=== PATIENT | female | born 1995 | race American Indian/Alaskan Native ===

== ENCOUNTER → 2021-09-09 | Emergency (ER) | payer OTHER ==
[~2021-09-09] MED LIST: METOCLOPRAMIDE 10 MG TAB PO ONE; SERTRALINE 25 MG TAB ONE
[2021-09-09 19:54] VITALS: BP 140/81
--- NOTE | 2021-09-09 20:03 | Event Note ---
ED Screening Note ED Screening Note: Patient is a 26-year-old female presents emergency room complaints of nausea and vomiting and increased saliva over the last 5 days she states that she has been having some lower abdominal cramping Patient states that she is concerned that she may be and states her last menstrual cycle was 08/13/2021 She states that she is also had some mild diarrhea She denies any vaginal bleeding or dysuria This initial assessment/diagnostic orders/clinical plan/treatment(s) is/are subject to change based on patients health status, clinical progression and re- assessment by fellow clinical providers in the ED. Further treatment and workup at subsequent clinical providers discretion. Patient/guardian urged not to elope from the ED as their condition may be serious if not clinically assessed and managed. Initial orders include: Labs, urine, meds
[2021-09-09 20:55] LABS: Basophils # (Auto) 0.1 K/mm3 (0.0-0.1); Basophils % (Auto) 1.2 % (0.0-1.8); Eosinophils # (Auto) 0.3 K/mm3 (0.0-0.4); Eosinophils % (Auto) 4.2 % (0.0-4.3); Lymphocytes # (Auto) 2.4 K/mm3 (1.2-5.4); Lymphocytes % (Auto) 35.7 % (13.4-35.0); Mean Corpuscular HGB Conc 30 % (30-34); Mean Corpuscular Volume 77 fl (79-97); Monocytes # (Auto) 0.9 K/mm3 (0.0-0.8); Monocytes % (Auto) 13.4 % (0.0-7.3); Platelet Count 363 K/mm3 (140-440); Red Blood Count 4.77 M/mm3 (3.65-5.03); Red Cell Distribution Width 18.1 % (13.2-15.2)
[2021-09-09 20:57] LABS: Hematocrit 36.7 % (30.3-42.9); Hemoglobin 10.9 gm/dl (10.1-14.3)
[2021-09-09 20:57] LABS: Bacteria,Urine 1+ /HPF (Negative); Bilirubin,Urine NEG (Negative); Blood,Urine NEG (Negative); Color,Urine Yellow (Yellow); Mucus,Urine 1+ /HPF; Protein,Urine <15 mg/dL mg/dL (Negative); Urobilinogen,Urine < 2.0 mg/dL (<2.0)
[2021-09-09 21:19] LABS: Alanine Aminotransferase 12 units/L (7-56); Albumin 4.1 g/dL (3.9-5); BUN/Creatinine Ratio 10; Blood Urea Nitrogen 10 mg/dL (7-17); Calcium 9.3 mg/dL (8.4-10.2); Hemolysis Index 15
--- NOTE | 2021-09-09 22:44 | Emergency Department Report ---
ED N/V/D HPI - General Chief complaint: Nausea/Vomiting/Diarrhea Stated complaint: VOMITING/ REQUESTING BLOOD PRENANCY TEST Source: patient Mode of arrival: Ambulatory Limitations: No Limitations - History of Present Illness Initial comments: Patient is a A0 26-year-old -[place]ian female with a history of bipolar disorder and paranoid schizophrenia who presented to the ED with complaint of acute onset intermittent nausea and vomiting for 3 days. Patient also complains of mild diarrhea and vaginal discharge. Patient states that she was initially evaluated at another hospital 2 days ago and diagnosed with bacterial vaginosis and Madeleine vaginitis and is currently on Diflucan and Flagyl. Patient states that she suspected she may be although she admits that her LMP was August 13, 2021. Patient denies dizziness, syncope, fever, chills, cough, sore throat, nasal and sinus congestion, dysuria, urinary frequency and urgency, hematuria, vaginal bleeding, headache, back pain or neck pain. MD complaint: nausea, vomiting, other (Vaginal discharge) -: Sudden, days(s) (3) Description of Vomiting: food contents, watery Associated Abdominal Pain: No Location: diffuse Radiation: none Severity: moderate Pain Scale: 4 Quality: dull Consistency: intermittent Improves with: none Worsens with: none Context: other (Suspect she may be ) Associated Symptoms: denies other symptoms, loss of appetite, malaise, nausea/vomiting. denies: myalgias, chest pain, cough, diaphoresis, fever/chills, headaches, rash, dysuria, shortness of breath, syncope, weakness - Related Data Previous Rx's Medication Instructions Recorded Last Taken Type Famotidine [Pepcid] 20 mg PO BID #30 tablet 09/09/21 Unknown Rx Ondansetron [Zofran Odt] 4 mg PO Q6HR PRN #20 tab.rapdis 09/09/21 Unknown Rx Allergies Allergy/AdvReac Type Severity Reaction Status Date / Time No Known Allergies Allergy Unverified 09/09/21 19:54 ED Review of Systems ROS: Stated complaint: VOMITING/ REQUESTING BLOOD PRENANCY TEST Other details as noted in HPI Constitutional: denies: chills, fever Eyes: denies: eye pain, eye discharge, vision change ENT: denies: ear pain, throat pain Respiratory: denies: cough, shortness of breath, wheezing Cardiovascular: denies: chest pain, palpitations Endocrine: no symptoms reported Gastrointestinal: nausea, vomiting. denies: abdominal pain, diarrhea Genitourinary: frequency, discharge. denies: urgency, dysuria Musculoskeletal: denies: back pain, joint swelling, arthralgia Skin: denies: rash, lesions Neurological: denies: headache, weakness, paresthesias Psychiatric: denies: anxiety, depression Hematological/Lymphatic: denies: easy bleeding, easy bruising ED Past Medical Hx - Past Medical History Previous Medical History?: No - Surgical History Past Surgical History?: No - Medications Home Medications: Home Medications Medication Instructions Recorded Confirmed Last Taken Type Famotidine [Pepcid] 20 mg PO BID #30 tablet 09/09/21 Unknown Rx Ondansetron [Zofran Odt] 4 mg PO Q6HR PRN #20 tab.rapdis 09/09/21 Unknown Rx ED Physical Exam - General Limitations: No Limitations General appearance: alert, in no apparent distress - Head Head exam: Present: atraumatic, normocephalic, normal inspection - Eye Eye exam: Present: normal appearance, PERRL, EOMI Pupils: Present: normal accommodation - ENT ENT exam: Present: normal exam, normal orophraynx, mucous membranes moist, TM's normal bilaterally, normal external ear exam - Neck Neck exam: Present: normal inspection, full ROM - Respiratory Respiratory exam: Present: normal lung sounds bilaterally. Absent: respiratory distress, wheezes, rales, rhonchi, stridor, chest wall tenderness, accessory muscle use, decreased breath sounds, prolonged expiratory - Cardiovascular Cardiovascular Exam: Present: regular rate, normal rhythm, normal heart sounds. Absent: systolic murmur, diastolic murmur, rubs, gallop - GI/Abdominal GI/Abdominal exam: Present: soft, normal bowel sounds. Absent: tenderness, guarding, rebound, hyperactive bowel sounds, hypoactive bowel sounds, organomegaly - Bi-manual exam: Present: other (Pelvic exam deferred, patient already had pelvic exam at another hospital) - Extremities Exam Extremities exam: Present: normal inspection, full ROM, normal capillary refill - Back Exam Back exam: Present: normal inspection, full ROM. Absent: tenderness, CVA tenderness (R), CVA tenderness (L), muscle spasm, paraspinal tenderness, vertebral tenderness - Neurological Exam Neurological exam: Present: alert, oriented X3, CN II-XII intact, normal gait, reflexes normal - Psychiatric Psychiatric exam: Present: normal affect, normal mood, anxious - Skin Skin exam: Present: warm, dry, intact, normal color. Absent: rash ED Course Vital Signs 09/09/21 19:53 Temperature 98.0 F Pulse Rate 94 H Respiratory 18 Rate Blood Pressure 140/81 O2 Sat by Pulse 100 Oximetry ED Medical Decision Making - Lab Data Result diagrams: 09/09/21 20:38 09/09/21 20:38 - Medical Decision Making This is a A0 26-year-old -[place] female with a history of bipolar disorder and paranoid schizophrenia who presented to the ED with complaint of acute onset intermittent nausea and vomiting for 3 days. Patient also complains of mild diarrhea and vaginal discharge. Patient states that she was initially evaluated at another hospital 2 days ago and diagnosed with bacterial vaginosis and Madeleine vaginitis and is currently on Diflucan and Flagyl. Patient states that she suspected she may be although she admits that her LMP was August 13, 2021. In the ED, patient is alert and oriented x3 and is not in any distress. Patient is hemodynamically stable. Lab test results were reviewed and are all nonactionable including beta hCG quant test results. Patient was treated with antiemetics in the ED. On reevaluation, patient passed oral fluid challenge in the ED, and started eating chips with no difficulty or nausea and vomiting. Patient was discharged home and advised to continue taking her previously prescribed antibiotics for bacterial vaginosis and Madeleine vaginitis. Patient was advised to follow-up with her primary care physician in 7 to 10 days for reevaluation or return to the ED immediately if symptoms get worse - Differential Diagnosis UTI; bacterial vaginosis; ; STD; dehydration; viral gastroenteriti Critical care attestation.: If time is entered above; I have spent that time in minutes in the direct care of this critically ill patient, excluding procedure time. ED Disposition Clinical Impression: Nausea and vomiting in adult patient, Viral gastroenteritis Disposition: HOME / SELF CARE / HOMELESS Is pt being admited?: No Does the pt Need Aspirin: No Condition: Stable Instructions: Nausea and Vomiting, Adult, [id number], Viral Gastroenteritis, Adult, [id number] Additional Instructions: All lab test results were reviewed and are all nonactionable including beta hCG quant which is a test by blood. Therefore you are not based on the lab test results. Therefore maintain a clear liquid diet for 12 to 24 hours, drink plenty fluids, take medication as advised, follow-up with your primary care physician in 7 to 10 days for reevaluation or return to the ED immediately if symptoms get worse. Prescriptions: Famotidine [Pepcid] 20 mg PO BID #30 tablet Ondansetron [Zofran Odt] 4 mg PO Q6HR PRN #20 tab.rapdis PRN Reason: Nausea And Vomiting Referrals: [facility] [Provider Group] - 3-5 Days Time of Disposition: 22:44 Print Language: RWANDAN
== END | disposition home or self-care (01) ==
LOC: ED 18:52
DX: R11.2 Nausea with vomiting, unspecified (principal); A08.4 Viral intestinal infection, unspecified; Z79.899 Other long term (current) drug therapy
CPT/HCPCS: 36415; 80053; 81001; 83690; 84702; 85025; 87086; 99283